=== PATIENT | male | born 1995 | race Caucasian/White ===

== ENCOUNTER → 2024-09-27 | Outpatient (BNVA) | payer BC, SELFPAY | END | disposition home or self-care (01) | PROVIDERS: PCP Internal Medicine; Referring Provider Internal Medicine; Visit Provider Urology | DX: Z30.2 Encounter for sterilization (principal); N40.0 Benign prostatic hyperplasia without lower urinary tract symptoms; E66.9 Obesity, unspecified; Z68.36 Body mass index [BMI] 36.0-36.9, adult | CPT/HCPCS: 81003; 99202; G0463 ==

== ENCOUNTER 2024-11-14 06:30 | Day surgery (SDC) | payer BC, SELFPAY ==
[2024-11-13 12:51] VITALS: BMI 35.5
[2024-11-14 07:00] VITALS: BP 124/80; PULSE 77; RESP 15; TEMP 36.4; O2SAT 98; BMI 36.2
[2024-11-14 09:32] VITALS: BP 129/74; PULSE 68; RESP 20; TEMP 36.2; O2SAT 98
--- NOTE | 2024-11-14 09:32 | SUR.PHASEII ---
0932: Pt. AAOx4, vitals stable, breathing unlabored, no complaint of pain or nausea, dressing to periarea CDI, no active bleed noted, report received from Anthony CHEN and MD Morales.
[2024-11-14 09:37] VITALS: BP 120/69; PULSE 62; RESP 20; TEMP 36.3; O2SAT 97
[2024-11-14 09:42] VITALS: BP 124/76; PULSE 66; RESP 20; TEMP 36.3; O2SAT 98
--- NOTE | 2024-11-14 09:43 | PD.SUROPNT ---
Date of Procedure 11/14/24 Pre Op Diagnosis Elective sterilization Post Op Diagnosis Same Procedure Bilateral vasectomy Findings Bilateral vas no pathology Procedure Description This is a 29-year-old gentleman who was seen in urology office on consultation he is with 2 children he desired bilateral vasectomy procedure and complications were discussed with patient in great detail informed consent is obtained he understood very well there is no warranty for permanent sterilization literature regarding bilateral vasectomy was provided to the patient Patient was brought to the operating room in a satisfactory condition after appropriate premedication he was appropriately identified by surgeon and operating room staff site scope and indications of the procedure were reconfirmed with the patient MAC anesthesia was administered, parts were prepped and draped in a usual sterile fashion. Next the right vas deferens was palpated between 2 fingers and a thumb 2% lidocaine with quarter percent Marcaine was instilled appropriately vertical skin incision was made proper hemostasis was secured. Next the vas deferens was brought into the incision it was from its various fascial coverings between 2 silver clips centimeter of the vas deferens was excised. The lumen of the vas deferens was diathermized with coagulation diathermy distal end of the vas deferens was buried between various fascial layers. Skin was approximated with 3-0 chromic. Similar procedure was repeated on the opposite side. Next this sterile dressings were applied. Pressure bandage was given Patient having tolerated the procedure well and was sent to recovery room in a satisfactory condition to be discharged home with full postoperative instructions were verbally as well as in writing to be followed in urology office in 6 weeks' time. Anesthesia MAC and local Pathology / specimen None Estimated Blood Loss 0.2 Condition Stable Disposition PACU Surgeon Faraz Mcguire MD Surgical Staff Operation Date: 11/14/24 08:30 <No data on this case meets the specified criteria>
[2024-11-14 09:47] VITALS: BP 128/70; PULSE 62; RESP 20; TEMP 36.4; O2SAT 97
[2024-11-14 10:02] VITALS: BP 127/78; PULSE 66; RESP 20; TEMP 36.7; O2SAT 97
--- NOTE | 2024-11-14 10:10 | SUR.PHASEII ---
1010: Pt. AAOx4, vitals stable, breathing unlabored, no complaint of pain or nausea, dressing to periarea CDI, no active bleed noted, pt. tolerated sips of water well, pt. ambulated to wheelchair with steady gait and no assist, no complications. Gave discharge instructions to the pt. and his ride, both verbalized understanding and had no fuirther questions. Pt. left with all personal belongings.
== END 2024-11-14 10:10 | disposition home or self-care (01) ==
PROVIDERS: PCP Internal Medicine; Referring Provider Urology; Visit Provider Urology
PROC: (CPT 55250; principal; 2024-11-14 08:30)
DX: Z30.2 Encounter for sterilization (principal)
CPT/HCPCS: 55250; A4217; A4649; J2250; J2704; J3010; J3490; A9270

== ENCOUNTER → 2025-04-23 | Outpatient (BNVA) | payer BC, SELFPAY | END | disposition home or self-care (01) | PROVIDERS: PCP Internal Medicine; Referring Provider Internal Medicine; Visit Provider Physician Assistant | DX: Z98.52 Vasectomy status (principal) | CPT/HCPCS: Q3014 ==

== ENCOUNTER → 2025-04-23 | Outpatient (CLI) | payer BC, SELFPAY ==
[2025-04-23 17:50] LABS: Post Vasectomy Sperm Presence No Spermatozoa Seen (No Sperm)
== END | disposition home or self-care (01) ==
LOC: SLDO 16:21
PROVIDERS: Referring Provider Physician Assistant; Visit Provider Physician Assistant
DX: Z98.52 Vasectomy status (principal)
CPT/HCPCS: 89321